=== PATIENT | male | born 1945 | race Caucasian/White ===

== ENCOUNTER 2018-04-14 13:59 | Emergency (ER) | payer MEDICARE, OTHER ==
[~2018-04-14] VITALS: Ht 172.7 cm; Wt 87.5 kg
--- NOTE | 2018-04-14 14:15 | NUR ---
PT BIB FOR LEFT EYE REDNESS. NON TRAUMA. AWAITING FOR MD MARIN. PT AAOX3. NAD NOTED. SAFETY AND COMFORT MEASURES PROVIDED. WILL MONITOR.
[2018-04-14] MEDS ORDERED: AMIN30LI4 PO (14:45)
[2018-04-14] MEDS ORDERED: APIX5TAB PO (14:45)
[2018-04-14] MEDS ORDERED: ASCO500T9 PO (14:45)
[2018-04-14] MEDS ORDERED: FURO-144 PO (14:45)
[2018-04-14] MEDS ORDERED: TRAM50TA2 PO (14:45)
[2018-04-14] MEDS ORDERED: DILT120T2 PO (14:45)
[2018-04-14] MEDS ORDERED: NITR0.4T48 SL (14:45)
[2018-04-14] MEDS ORDERED: FERR325T23 PO (14:45)
[2018-04-14] MEDS ORDERED: IPRA3AMP23 IH (14:45)
[2018-04-14] MEDS ORDERED: MULT-447 PO (14:45)
[2018-04-14] MEDS ORDERED: SENN-167 PO (14:45)
[2018-04-14] MEDS ORDERED: DOCU-141 PO (14:45)
[2018-04-14] MEDS ORDERED: GABA-534 PO (14:45)
[2018-04-14] MEDS ORDERED: TAMS-12 PO (14:45)
[2018-04-14] MEDS ORDERED: METO25TA3 PO (14:45)
[2018-04-14] MEDS ORDERED: FINA5TAB11 PO (14:45)
[2018-04-14] MEDS ORDERED: ISOS20TA8 PO (14:45)
[2018-04-14] MEDS ORDERED: BISA5TAB10 PO (14:45)
[2018-04-14] MEDS ORDERED: PRED10TA PO (14:45)
--- NOTE | 2018-04-14 16:40 | NUR ---
PT TAKEN TO CT.
--- NOTE | 2018-04-14 18:46 | NUR ---
CALLED [facility] FOR TRANSPORT ETA OF 1924 WAS GIVEN. TRIP#[id number]
--- NOTE | 2018-04-14 19:09 | NUR ---
PT PROVIDED WITH WATER AND SNACKS REQUESTED.
[2018-04-14 19:31] VITALS: BP 149/85
--- NOTE | 2018-04-14 19:31 | NUR ---
TRANSPORT AT BEDSIDE REPORT GIVEN TO EMT
== END 2018-04-14 19:32 | disposition home or self-care (01) ==
LOC: ER 14:03
DX: H11.32 Conjunctival hemorrhage, left eye (principal); S00.12XA Contusion of left eyelid and periocular area, initial encounter; I12.9 Hypertensive chronic kidney disease with stage 1 through stage 4 chronic kidney disease, or unspecified chronic kidney disease; N18.9 Chronic kidney disease, unspecified; J44.9 Chronic obstructive pulmonary disease, unspecified; Z95.0 Presence of cardiac pacemaker; Z88.6 Allergy status to analgesic agent; Z79.899 Other long term (current) drug therapy; Z98.890 Other specified postprocedural states; X58.XXXA Exposure to other specified factors, initial encounter; Y93.89 Activity, other specified; Y92.89 Other specified places as the place of occurrence of the external cause; Y99.8 Other external cause status
CPT/HCPCS: 70450; 99284; A4606; Z7610